=== PATIENT | male | born 1980 | race Two or more races ===

== ENCOUNTER 2019-10-30 13:27 | Inpatient (IN) | payer BC ==
[~2019-10-30] VITALS: Ht 180.3 cm; Wt 114.6 kg
[~2019-10-30 13:27] MED LIST: BACITRACIN 50,000 UNIT ONE; BUPIVACAINE/PF-EPI 0.5% 1:200K ONE
[2019-10-30] MEDS ORDERED: LACTATED RINGERS 1,000 ML IV SCH (14:37)
[2019-10-30 14:54] VITALS: BP 116/79
[2019-10-30] MEDS ORDERED: METO25TA35 PO (14:54)
[2019-10-30] MEDS ORDERED: SITA1TAB5 PO (14:54)
[2019-10-30] MEDS ORDERED: HYDR-3276 PO (14:54)
[2019-10-30] MEDS ORDERED: GABA600T7 PO (14:54)
[2019-10-30] MEDS ORDERED: [UNRECOGNIZED DRUG - OTHER] (14:54)
[2019-10-30] MEDS ORDERED: EMPA10TA PO (14:54)
[2019-10-30] MEDS ORDERED: trazadone (14:54)
[2019-10-30] MEDS ORDERED: PIOG15TA69 PO (14:54)
[2019-10-30] MEDS ORDERED: HYDR12.517 PO (14:54)
[2019-10-30] MEDS ORDERED: GABAPENTIN 300 MG CAPSULE PO ONE (15:00)
[2019-10-30] MEDS ORDERED: ACETAMINOPHEN 500 MG TABLET PO ONE (15:00)
[2019-10-30] MEDS ORDERED: SCOPOLAMINE 1MG PATCH TD SCH (15:00)
[2019-10-30] MEDS ORDERED: CHLORHEXIDINE 15 ML UDC MM ONE (15:00)
[2019-10-30] MEDS ORDERED: DEXTROSE 50%, 50ML SYRINGE IVPush ONE (16:00)
[2019-10-30 17:17] VITALS: BP 115/75
[2019-10-30] MEDS ORDERED: BACITRACIN 50,000 UNIT ONE (17:52)
[2019-10-30] MEDS ORDERED: BUPIVACAINE/PF-EPI 0.5% 1:200K ONE (17:52)
[2019-10-30] MEDS ORDERED: BACITRACIN OINT 500U/GM, 15 GM ONE (17:52)
[2019-10-30] MEDS ORDERED: MIDAZOLAM 1 MG/ML, 2ML ONE (19:05)
[2019-10-30] MEDS ORDERED: FENTANYL PF 250 MCG/5ML ONE (19:05)
[2019-10-30] MEDS ORDERED: SUCCINYLCHOLINE 20 MG/ML, 10ML ONE (19:13)
[2019-10-30] MEDS ORDERED: PROPOFOL 10 MG/ML, 20ML ONE (19:13)
[2019-10-30] MEDS ORDERED: ROCURONIUM 10 MG/ML,10ML ONE (19:47)
[2019-10-30] MEDS ORDERED: ONDANSETRON 2MG/ML, 2ML ONE (19:47)
[2019-10-30] MEDS ORDERED: PROPOFOL 10 MG/ML, 50ML ONE (19:47)
[2019-10-30] MEDS ORDERED: DEXAMETHASONE 4 MG/ML, 1ML ONE (19:47)
[2019-10-30] MEDS ORDERED: THROMBIN 20,000 UNIT VIAL TP ONE (20:13)
[2019-10-30] MEDS ORDERED: DIPHENHYDRAMINE 50 MG/ML, 1ML IVPush PRN (20:30)
[2019-10-30] MEDS ORDERED: DIAZEPAM 5 MG/ML, 2ML IVPush PRN (20:30)
[2019-10-30] MEDS ORDERED: METHOCARBAMOL 1,000 MG in DEXTROSE 5% 100 ML IV PRN (20:30)
[2019-10-30] MEDS ORDERED: OXYcodone 5 MG/5 ML ORAL.SOL UDC PO PRN (20:30)
[2019-10-30] MEDS ORDERED: MEPERIDINE/PF 25MG/0.5ML IVPush PRN (20:30)
[2019-10-30] MEDS ORDERED: LABETALOL 5MG/ML, 20ML IV PRN (20:30)
[2019-10-30] MEDS ORDERED: ONDANSETRON 2MG/ML, 2ML IVPush PRN (20:30)
[2019-10-30] MEDS ORDERED: hydrALAzine 20 MG/ML, 1ML IV PRN (20:30)
[2019-10-30] MEDS ORDERED: ACETAMINOPHEN 325 MG TABLET PO PRN (20:30)
[2019-10-30] MEDS ORDERED: PROMETHAZINE 25 MG/ML, 1ML IVPush PRN (20:30)
[2019-10-30] MEDS: FENTANYL PF 100 MCG/2ML IV PRN ×2 (22:49→22:55)
[2019-10-30] MEDS ORDERED: FENTANYL PF 100 MCG/2ML ONE (22:51)
[2019-10-30] MEDS ORDERED: OXYcodone 5 MG/5 ML ORAL.SOL UDC ONE (22:51)
[2019-10-30] MEDS ORDERED: HYDROmorphone 1 MG/ML, 1ML INJ ONE (23:03)
[2019-10-30] MEDS: HYDROmorphone 1 MG/ML, 1ML INJ IVPush PRN ×2 (23:12→23:19)
[2019-10-30 23:55] VITALS: BP 104/71
[2019-10-31] MEDS ORDERED: DIPHENHYDRAMINE 50 MG/ML, 1ML IVPush PRN (00:30)
[2019-10-31] MEDS ORDERED: MAGNESIUM HYDROXIDE 8%, 30ML UDC PO PRN (00:30)
[2019-10-31] MEDS ORDERED: CEFAZOLIN PMX 2GM/50ML 50 ML IVPB SCH (00:30)
[2019-10-31] MEDS ORDERED: BISACODYL 10 MG SUPP PR PRN (00:30)
[2019-10-31] MEDS ORDERED: ONDANSETRON 2MG/ML, 2ML IV PRN (00:30)
[2019-10-31] MEDS ORDERED: PHARMACY MAY ADJ FOR RENAL FX MC PRN (00:30)
[2019-10-31] MEDS ORDERED: HYDROcodone/APAP 5/325 TABLET PO PRN (00:30)
[2019-10-31] MEDS: HYDROcodone/APAP 10/325 MG TABLET PO PRN ×3 (00:53→09:35)
[2019-10-31] MEDS: NS + 20MEQ KCL 1,000 ML IV SCH ×2 (00:53→12:07)
[2019-10-31 01:02] LABS: CREATININE 1.45 mg/dL (0.7-1.3)
[2019-10-31 01:12] VITALS: BP 104/71
[2019-10-31] MEDS: FENOFIBRATE MC SCH ×2 (01:30→07:55)
[2019-10-31] MEDS: TRAZODONE MC SCH ×2 (01:30→07:55)
[2019-10-31] MEDS: CEFAZOLIN PMX 2GM/50ML 50 ML IVPB SCH ×2 (03:38→12:21)
[2019-10-31] MEDS: morphine SULFATE 10 MG/ML, 1ML IV PRN ×2 (03:38→07:55)
[2019-10-31 03:44] VITALS: BP 111/68
[2019-10-31] MEDS: METHOCARBAMOL 750 MG in DEXTROSE 5% 100 ML IV SCH ×2 (05:48→13:18)
[2019-10-31 07:45] VITALS: BP 122/74
[2019-10-31] MEDS ORDERED: MORPHINE SULFATE 4 MG/ML, 1ML ONE (07:47)
[2019-10-31] MEDS ORDERED: metFORMIN XR 500 MG TAB.ER.24H PO SCH (08:00)
[2019-10-31] MEDS ORDERED: METOPROLOL TARTRATE 25 MG TAB PO SCH (09:00)
[2019-10-31] MEDS ORDERED: GABAPENTIN 300 MG CAPSULE PO SCH (09:00)
[2019-10-31] MEDS ORDERED: HYDROCHLOROTHIAZIDE 12.5 MG CAPSULE PO SCH (09:00)
[2019-10-31] MEDS ORDERED: PIOGLITAZONE 15 MG TABLET PO SCH (09:00)
[2019-10-31] MEDS ORDERED: LINAGLIPTIN 5 MG TAB PO SCH (09:00)
[2019-10-31] MEDS ORDERED: SENNA/DOCUSATE TABLET PO SCH (09:00)
[2019-10-31] MEDS ORDERED: JARDIANCE 10MG HOMEMEDPO SCH (09:00)
[2019-10-31] MEDS ORDERED: OXYcodone IR 5MG TABLET PO PRN (12:30)
[2019-10-31] MEDS ORDERED: KETOROLAC 30 MG/1 ML IM PRN (12:30)
[2019-10-31] MEDS ORDERED: MAGNESIUM HYDROXIDE 8%, 30ML UDC PO ONE (12:30)
[2019-10-31 12:52] LABS: ANION GAP 8 mmol/L (5-15); CALCIUM 9.1 mg/dL (8.5-10.1); CHLORIDE 109 mmol/L (98-107); CREATININE 1.34 mg/dL (0.7-1.3)
[2019-10-31] MEDS ORDERED: METHOCARBAMOL 750 MG TABLET PO PRN (13:00)
[2019-10-31] MEDS ORDERED: METHOCARBAMOL 750 MG TABLET ONE (13:15)
[2019-10-31] MEDS ORDERED: METH750T87 PO (15:03)
[2019-10-31 15:21] VITALS: BP 142/88
[2019-11-02] MEDS ORDERED: METHOCARBAMOL 750 MG TABLET PO SCH (06:00)
== END 2019-10-31 16:00 | disposition home or self-care (01) | DRG 460 ==
LOC: ORIP 14:02 → 4NE 17:12 → DCLOUNGE 10-31 15:43
PROVIDERS: ADMIT Neurological Surgery; ATTEND Neurological Surgery
PROC: 0SG30AJ Fusion of Lumbosacral Joint with Interbody Fusion Device, Posterior Approach, Anterior Column, Open Approach (ICD-10-PCS; 2019-10-30)
PROC: 01NB0ZZ Release Lumbar Nerve, Open Approach (ICD-10-PCS; 2019-10-30)
PROC: 01NR0ZZ Release Sacral Nerve, Open Approach (ICD-10-PCS; 2019-10-30)
PROC: 0SG30AJ Fusion of Lumbosacral Joint with Interbody Fusion Device, Posterior Approach, Anterior Column, Open Approach (ICD-10-PCS; principal; 2019-10-30 16:00)
DX: M48.061 Spinal stenosis, lumbar region without neurogenic claudication (principal); N17.9 Acute kidney failure, unspecified; E11.9 Type 2 diabetes mellitus without complications; G89.18 Other acute postprocedural pain; M51.17 Intervertebral disc disorders with radiculopathy, lumbosacral region; G89.29 Other chronic pain; M51.27 Other intervertebral disc displacement, lumbosacral region
CPT/HCPCS: 36415; 72100; 76000; 80048; 82565; 82962; 87635; 95938; 95941; C1713; G0378; J0690; J1100; J1170; J2250; J2405; J2704; J3010; J3480; C1762; C1769; J0330; J2270; J2800; J7120